=== PATIENT | female | born 1990 | race Native Hawaiian/Other Pacific Islander ===

== ENCOUNTER 2016-11-17 19:49 | Observation (INO) | payer SELFPAY ==
[2016-11-17 19:58] VITALS: BMI 17.7
--- NOTE | 2016-11-17 20:24 | ED PDOC ---
Arrival/HPI - General Historian: Patient - History of Present Illness Time/Duration: Prior to Arrival Symptom Onset: Gradual Symptom Course: Unchanged Quality: Tightness Severity Level: 7 - General Time Seen by Provider: 11/17/16 19:59 - History of Present Illness Narrative History of Present Illness (Text): 26 F with no significant pmh presents to the ED with chest pain, back pain, and L sided extremity pain. Pt is here with her sister from [place] due to some marital issues back at home. Pt states that her cp has been present for the past few days and has gotten progressively worse. Radiates to her L arm. It is accompanied with sob that has been present for 2-3 months - Back at home her PMD did a "breathing test" that was normal. . Pt now also c/o of lower back pain with radiation to her L lower ext. Denies any juarez, dizziness, f/c, abd pain , n/v/d. (Donavon,Jordan) Past Medical History - Provider Review Nursing Documentation Reviewed: Yes - Infectious Disease Hx of Infectious Diseases: None - Psychiatric Hx Substance Use: No - Surgical History Other/Comment: Rectal surgery s/p vaginal delivery - Anesthesia Hx Anesthesia: Yes Hx Anesthesia Reactions: No Hx Malignant Hyperthermia: No Family/Social History Family/Social History: No Known Family HX Smoking Status: Never Smoked Hx Alcohol Use: No Hx Substance Use: No Allergies/Home Meds Allergies/Adverse Reactions: Allergies No Known Allergies Allergy (Verified 11/17/16 19:57) Review of Systems - Physician Review All systems were reviewed & negative as marked: Yes - Review of Systems Respiratory: SOB Cardiovascular: Chest Pain. absent: Palpitations Gastrointestinal: absent: Abdominal Pain, Diarrhea, Nausea, Vomiting Musculoskeletal: Back Pain. absent: Neck Pain Neurological: absent: Headache Physical Exam Appearance: Positive for: Well-Appearing Pain Distress: None Mental Status: Positive for: Alert and Oriented X 3 - Systems Exam Head: Present: Atraumatic, Normocephalic Pupils: Present: PERRL Extroacular Muscles: Present: EOMI Conjunctiva: Present: Normal Mouth: Present: Moist Mucous Membranes Neck: Present: Normal Range of Motion Respiratory/Chest: Present: Clear to Auscultation, Good Air Exchange. No: Respiratory Distress, Accessory Muscle Use Cardiovascular: Present: Regular Rate and Rhythm, Normal S1, S2. No: Murmurs Abdomen: Present: Normal Bowel Sounds. No: Tenderness, Distention, Peritoneal Signs Back: Present: Normal Inspection, Paraspinal Tenderness (L scapular region & lower lumbar region: tenderness to palpation, reproducible based on position and on ambulation). No: CVA Tenderness, Midline Tenderness, Pain with Leg Raise , Decubitus Ulcer Upper Extremity: Present: Normal Inspection. No: Cyanosis, Edema Lower Extremity: Present: Normal Inspection. No: Edema Neurological: Present: GCS=15, CN II-XII Intact, Speech Normal Skin: Present: Warm, Dry, Normal Color. No: Rashes Psychiatric: Present: Alert, Oriented x 3, Normal Insight, Normal Concentration Medical Decision Making ED Course and Treatment: Impression: 26 F with no significant pmh presents to the ED with chest pain, back pain, and L sided extremity pain. Differential Diagnosis: r/o TX NSTEMI / anxiety / MSK Plan: - CBC, CMP, Cardiac iso - D-dimer - EKG stat - Reassess and disposition EKG: Ordered, reviewed, and independently interpreted the EKG. Rate:95 BPM Rhythm: NSR Interpretation: No ST-segment elevations or depressions, no T-wave inversions, normal intervals. Comparison: No previous EKG for comparison. 11/18/16 02:11 CXR shows no acute pathology D-Dimer wnl 2 sets of troponin are negative. Pt was instructed to follow up with cardiology as an outpatient follow up. Re-evaluation. Patient feels better. Discussed results and plan with patient who expresses understanding. All questions answered and there is agreement with the plan to discharge home with instructions. Patient stable for discharge. Return if symptoms persist or worsen. (Jordan Raphael) Patient seen and examined with resident. Came up with treatment and disposition plan with resident. Patient is a 26 year old female who presents to the emergency department complaining of back pain and chest pain radiating to left arm for past few days. Also reports of occasional shortness of breath for few months. Will order labs, cardiac enzymes, d-dimer and EKG. Labs unremarkable. Initial Trop negative. Will obs patient in emergency department for repeat enzymes. 11/17/16 22:32 pt's HEART score low. 2 sets of cardiac enzymes and an EKG ordered I had a long discussion with patient that our initial evaluation has not shown evidence of a heart attack. Patient verbalized understanding that even if these tests are normal, symptoms may still be a warning sign of a future heart attack and it is very important for patient to arrange outpatient cardiology follow up Patient was agreeable to observation in the emergency room, and understood that this will prolong the length of stay Observation and further evaluation was offered as inpatient, but patient asked to be discharged home with outpatient follow up instead. (Spencer Keith) - RAD Interpretation Radiology Orders: 11/17/16 20:14 CHEST PORTABLE [RAD] Stat - Medication Orders Current Medication Orders: Discontinued Medications Aspirin (Aspirin) 325 mg PO STAT STA Stop: 11/17/16 20:34 Last Admin: 11/17/16 20:56 Dose: 325 mg Disposition/Present on Arrival - Present on Arrival Any Indicators Present on Arrival: No History of DVT/PE: No History of Uncontrolled Diabetes: No Urinary Catheter: No History of Decub. Ulcer: No History Surgical Site Infection Following: None - Disposition Have Diagnosis and Disposition been Completed?: Yes Disposition Time: 20:15 Patient Plan: Discharge - Disposition Diagnosis: Back pain, Chest pain Disposition: HOME/ ROUTINE Patient Problems: Current Active Problems Problem Status Onset Back pain Acute Chest pain Acute Condition: IMPROVED
[2016-11-17 20:43] VITALS: TEMP 98.9
[2016-11-17 20:45] LABS: ADD MANUAL DIFF? NO
[2016-11-17 20:52] LABS: BASO # 0.02 K/mm3 (0.0-2.0); BASO % 0.2 % (0.0-3.0); EOS % 0.3 % (1.5-5.0); GRAN # 7.04 (1.4-6.5); GRAN % 62.1 % (50.0-68.0); HEMATOCRIT 39.5 % (36.0-48.0); LYMPH # 3.6 (1.2-3.4); LYMPH % 31.7 % (22.0-35.0); MEAN CELL VOLUME 85.7 fL (80.0-105.0); MEAN CORPUSCULAR HEMOGLOBIN 29.1 pg (25.0-35.0); MEAN CORPUSCULAR HGB CONC 33.9 g/dl (31.0-37.0); MEAN PLATELET VOLUME 10.3 fl (7.0-11.0); MONO # 0.7 (0.1-0.6); MONO % 5.7 % (1.0-6.0); PLATELET COUNT 322 10^3/uL (120.0-450.0); RED CELL DISTRIBUTION WIDTH 12.3 % (11.5-14.5); WHITE BLOOD COUNT 11.3 10^3/ul (4.5-11.0)
[2016-11-17 21:02] LABS: ALB/GLOB RATIO 1.2 (1.1-1.8); ALKALINE PHOSPHATASE 40 U/L (38-133); ALT/SGPT 24 U/L (7-56); AST/SGOT 23 U/L (15-39); BILIRUBIN,TOTAL 0.6 mg/dL (0.2-1.3); BLOOD UREA NITROGEN 11 mg/dL (7-21); CALCIUM 9.7 mg/dL (8.4-10.5); CARBON DIOXIDE 26 mmol/L (21-33); CHLORIDE 105 mmol/L (98-107); GFR AFRICAN-AMERICAN > 60; GLUCOSE,RANDOM 87 mg/dL (70-110); POTASSIUM 4.6 mmol/L (3.6-5.0); SODIUM 138 mmol/L (132-148); TOTAL PROTEIN 8.3 g/dL (5.8-8.3)
[2016-11-17 21:19] LABS: TROPONIN I < 0.01 ng/mL
[2016-11-17 22:28] LABS: D DIMER 0.21 mg/L FEU (0-0.50); INR 1.19 (0.93-1.08); PARTIAL THROMBOPLASTIN TIME 27.1 Seconds (23.7-30.8)
[2016-11-18 00:48] VITALS: O2SAT 100
[2016-11-18 02:08] LABS: TROPONIN I < 0.01 ng/mL
[2016-11-18 02:30] VITALS: BP 103/75; PULSE 78; RESP 16
--- NOTE | 2016-11-18 09:31 | RAD ---
HISTORY: cp COMPARISON: No prior. FINDINGS: LUNGS: No active pulmonary disease. PLEURA: No significant pleural effusion identified, no pneumothorax apparent. CARDIOVASCULAR: Normal. OSSEOUS STRUCTURES: No significant abnormalities. VISUALIZED UPPER ABDOMEN: Normal. OTHER FINDINGS: None. IMPRESSION: No active disease.
--- NOTE | 2016-11-18 15:21 | CARD ---
APPROVED REPORT EKG Measurement Heart [id number] <Conclusion> Normal sinus rhythm Normal ECG
== END 2016-11-18 03:39 | disposition home or self-care (01) ==
LOC: ED 19:49 → EROBSV 20:14
PROVIDERS: ADMIT Emergency Medicine; ATTEND Emergency Medicine
DX: R07.9 Chest pain, unspecified (principal); M54.9 Dorsalgia, unspecified
CPT/HCPCS: 36415; 71010; 80053; 82550; 83615; 83880; 84484; 85025; 85378; 85610; 85730; 93005; 99283; G0378